=== PATIENT | female | born 1995 | race Caucasian/White ===

== ENCOUNTER 2020-08-07 21:31 | Emergency (ER) | payer SELFPAY ==
[~2020-08-07] VITALS: Ht 160 cm; Wt 79.4 kg
--- NOTE | 2020-08-07 21:40 | NUR ---
CALLED FOR TRIAGE, NO ANSWER
--- NOTE | 2020-08-07 22:04 | NUR ---
PT AAOX4. AMBULATORY WITH STEADY GAIT. BIBSELF C/O L LOWER BACK PAIN AND LOWER LIP INJURY S/P FALL YESTERDAY. MD AT BEDSIDE FOR EVAL. AWAITING ORDERS.
--- NOTE | 2020-08-07 22:15 | NUR ---
PT SIGNED WAIVER. RADIOLOGY AWARE.
[2020-08-07] MEDS ORDERED: IBUPROFEN 400 MG TABLET PO ONE (22:30)
[2020-08-07] MEDS ORDERED: IBUPROFEN 400 MG TABLET ONE (22:33)
--- NOTE | 2020-08-07 22:34 | NUR ---
PT UNABLE TO PROVIDE URINE SAMPLE.
--- NOTE | 2020-08-07 22:48 | NUR ---
PT PROVIDED URINE SAMPLE.
--- NOTE | 2020-08-07 23:11 | NUR ---
RADIOLOGY AT BEDSIDE
--- NOTE | 2020-08-07 23:30 | NUR ---
MD AT BEDSIDE SPEAKING TO PT REGARDING POSITIVE PREG.
--- NOTE | 2020-08-07 23:42 | NUR ---
Patient discharged to home in stable condition. Written and verbal after care instructions given. Patient verbalizes understanding of instruction. Pt aware that MD will not provide any pain medications due to her being . vss.
[2020-08-07 23:55] VITALS: BP 121/71
== END 2020-08-07 23:55 | disposition home or self-care (01) ==
LOC: ER 21:36
DX: O9A.211 Injury, poisoning and certain other consequences of external causes complicating pregnancy, first trimester (principal); S32.19XA Other fracture of sacrum, initial encounter for closed fracture; S30.0XXA Contusion of lower back and pelvis, initial encounter; Z3A.01 Less than 8 weeks gestation of pregnancy; W18.39XA Other fall on same level, initial encounter; Y93.89 Activity, other specified; Y92.89 Other specified places as the place of occurrence of the external cause; Y99.8 Other external cause status
CPT/HCPCS: 72110-TC; 73502; 84703-TC